=== PATIENT | male | born 1980 | race Two or more races ===

== ENCOUNTER 2019-04-28 02:51 | Emergency (ER) | payer SELFPAY ==
[~2019-04-28] VITALS: Ht 172.7 cm; Wt 81.6 kg
[2019-04-28 02:58] VITALS: BP 160/104
--- NOTE | 2019-04-28 02:58 | NUR ---
ED Nurse Note: pt came to ed c/o sore throat x 2 days. ao4. nad. vss
[2019-04-28] MEDS ORDERED: HYDROCODON-ACE1 EA15 ORAL (03:07)
[2019-04-28] MEDS ORDERED: IBUPROFEN600 MG ORAL (03:07)
[2019-04-28] MEDS ORDERED: AUGMENTIN 875-1 EAC1 ORAL (03:07)
--- NOTE | 2019-04-28 03:07 | Emergency Room Report ---
History of Present Illness General Chief Complaint: Sore Throat Source: Patient Present Illness [facility] This is a 38-year-old male with no past medical history. He presents with chief complaint of sore throat. Onset for last 2 days. Pain is 10 out of 10. Worse with eating and drinking. Subjective fever. No cough or congestion. No runny nose. Allergies: Coded Allergies: No Known Allergies (Unverified , 04/28/19) Patient History Past Medical History: see triage record, old chart reviewed Past Surgical History: none Pertinent Family History: none Social History: Denies: smoking Immunizations: other Reviewed Nursing Documentation: PMH: Agreed; PSxH: Agreed Nursing Documentation-PMH Past Medical History: No Stated History Review of Systems Eye: Denies: eye pain, blurred vision ENT: Reports: throat pain; Denies: ear pain, nose congestion, throat swelling Respiratory: Denies: cough, shortness of breath Cardiovascular: Denies: chest pain, palpitations Gastrointestinal: Denies: abdominal pain, diarrhea, nausea, vomiting Musculoskeletal: Denies: back pain, joint pain Skin: Denies: rash Neurological: Denies: headache, numbness Endocrine: Denies: increased thirst, increased urine Hematologic/Lymphatic: Denies: easy bruising All Other Systems: negative except mentioned in HPI Physical Exam Vital Signs Date Time Temp Pulse Resp B/P (MAP) Pulse Ox O2 Delivery O2 Flow Rate FiO2 04/28/19 02:53 99.0 107 29 160/104 (122) 97 Room Air Vitals with high blood pressure Sp02 EP Interpretation: reviewed, normal General Appearance: well appearing, no apparent distress, alert Head: normocephalic, atraumatic Eyes: bilateral eye PERRL, bilateral eye EOMI ENT: hearing grossly normal, tonsillar swelling, pharyngeal erythema, tonsillar exudate, other - no trismus Neck: full range of motion, supple, no meningismus Respiratory: chest non-tender, lungs clear, normal breath sounds Cardiovascular #1: regular rate, rhythm, no murmur Gastrointestinal: normal bowel sounds, non tender, no mass, no organomegaly, no bruit, non-distended Musculoskeletal: back normal, gait/station normal, normal range of motion Psychiatric: mood/affect normal Skin: warm/dry Medical Decision Making Diagnostic Impression: Primary Impression: Peritonsillar cellulitis ER Course Patient presents with peritonsillar cellulitis versus early peritonsillar abscess. I see no obvious pus formation. No trismus. He does have erythema to the soft palate and tonsil. Antibiotics given here. Last Vital Signs Date Time Temp Pulse Resp B/P (MAP) Pulse Ox O2 Delivery O2 Flow Rate FiO2 04/28/19 02:58 99.0 98 29 160/104 97 Room Air Status: improved Disposition: HOME, SELF-CARE Condition: Stable Scripts Ibuprofen* (MOTRIN*) 600 Mg Tablet 600 MG ORAL THREE TIMES A DAY, #30 TAB 0 Refills Prov: Jeramie Chang MD 04/28/19 Hydrocodone/Acetaminophen 5-325* (HYDROCODONE/ACETAMINOPHEN 5-325*) 1 Each Tablet 1 TAB ORAL Q6H PRN for For Pain, #10 TAB 0 Refills Prov: Jeramie Chang MD 04/28/19 Amoxicillin/Potassium Clav 875-125* (AUGMENTIN 875-125 TABLET*) 1 Each Tablet 1 TAB ORAL TWICE A DAY, #14 TAB Prov: Jeramie Chang MD 04/28/19 Patient Instructions: Strep Throat Additional Instructions: Increase fluids. Salt water gargle. Follow-up with your doctor in 2 to 3 days for recheck. Return if worse. Jeramie Chang MD Apr 28, 2019 03:07
--- NOTE | 2019-04-28 03:08 | NUR ---
ED Nurse Note: iv access established.
[2019-04-28] MEDS ORDERED: Dexamethasone 4mg/ml vial IVP ONE (03:15)
[2019-04-28] MEDS ORDERED: Ketorolac 30mg Inj IV ONE (03:15)
[2019-04-28] MEDS ORDERED: cefTRIAXone 1 GM in NS 55 ML IVPB ONE (03:15)
[2019-04-28 04:00] VITALS: BP 160/104
--- NOTE | 2019-04-28 04:00 | NUR ---
ER DISCHARGE NOTE: Patient is cleared to be discharged per ERMD, pt is aox4, on room air, with stable vital signs. pt was given dc and prescription instructions, pt was able to verbalize understanding, pt id band and iv site removed without complications. pt is able to ambulate with steady gait. pt took all belongings.
== END 2019-04-28 04:00 | disposition home or self-care (01) ==
LOC: EMR 03:26
DX: J36 Peritonsillar abscess (principal)
CPT/HCPCS: 96365; 96375; 99284; J0696; J1100; J1885